=== PATIENT | female | born 1970 | race African-American/Black ===

== ENCOUNTER 2024-08-21 18:19 | Emergency (ER) | payer MEDICAID, OTHER ==
[~2024-08-21] VITALS: Ht 165.1 cm; Wt 141.5 kg
[2024-08-21 18:30] VITALS: PULSE 99; RESP 20; O2SAT 98
[2024-08-21 18:36] VITALS: BP 166/95; TEMP 36.9; O2SAT 100
[2024-08-21] MEDS ORDERED: DEXAMETHASONE 2MG TABLET PO STA (20:31)
[2024-08-21] MEDS ORDERED: EPIN0.3P3 IM (20:54)
[2024-08-21] MEDS ORDERED: DIPH25CA83 MT (20:54)
[2024-08-21] MEDS: DEXAMETHASONE 4MG TABLET PO NR (21:24)
== END 2024-08-21 23:38 | disposition home or self-care (01) ==
LOC: ER 18:19
DX: T78.40XA Allergy, unspecified, initial encounter (principal); I10 Essential (primary) hypertension; X58.XXXA Exposure to other specified factors, initial encounter
CPT/HCPCS: 99283; J8540